=== PATIENT | male | born 1970 | race Caucasian/White ===

== ENCOUNTER 2017-05-09 09:11 | Emergency (ER) | payer OTHER ==
[~2017-05-09] VITALS: Ht 180.3 cm; Wt 124.5 kg
[2017-05-09 09:16] VITALS: BP 134/91; PULSE 111; RESP 15; O2SAT 98
--- NOTE | 2017-05-09 09:39 | ED.REPORT ---
HPI-General Illness Date of Service May 09, 2017 ED Provider: Favio Aj DO 47 y/o male with a hx of new onset DM and staph infection presents to the ED from urgent care complaining of a tender abscess on the back of his neck for the last 10 days. The pt has been on Bactrim for the past 8 days, which has not been effective. He states it has decreased in size but seems to be moving to the right. The pt is unsure if it has been draining but states he has been scratching it and noticed scarring. Nursing Notes Stated Complaint: LEG ABSCESS Chief Complaint: Skin Rash/Abscess Nursing Notes Reviewed: Yes Allergies: Coded Allergies: No Known Allergies (Unverified , 05/09/17) Scheduled Metformin (Metformin) 500 Mg Tablet 500 MG PO BID Sulfamethoxazole/Trimeth 800-160 mg (Bactrim DS 800-160 mg) 1 Each Tablet 1 TABLET PO BID General Time Seen by MD: 09:37 Chief Complaint Other (abscess on neck) Hx Obtained From: Patient Arrived By: Walk-in Sudden in Onset?: No Onset Occurred: More than a week ago... (10 days) Symptom Duration: Since onset Location: : Neck Quality: Painful Radiation: : Does not radiate Severity: Current: Mild Severity: Maximum: Mild Recent Healthcare: Recent doctor visit Similar Sx Previous: Yes Past Medical History Past Medical History hx of staph infection new onset DM Past Surgical History none reported Smoking History Unknown if Ever Smoker Social History Alcohol Use: "Social" Drug Use: Denies drug use Ambulatory Status Independent Review of Systems Reports: painful abscess on the neck Complete sys rev & neg: except as marked. Physical Exam Vital Signs Vital Signs Date Time Temp Pulse Resp B/P Pulse Ox O2 Delivery O2 Flow Rate FiO2 05/09/17 12:27 106 18 148/98 97 Room Air 05/09/17 09:16 36.8 111 15 134/91 98 Initial VS: Reviewed Head / Eyes: Atraumatic, Normocephalic ENT: Mucous membranes moist, Conjunctiva normal, No scleral icterus Neck: Supple, Full range of motion Respiratory: Breath sounds normal, Clear to auscultation, No respiratory distress Cardiovascular: Regular rate & rhythm, Heart sounds normal, Intact distal pulses Extremities: Vascular intact, Neuro intact, No swelling, No tenderness Neurologic: Alert, Oriented, Nonfocal General/Constitutional: Awake, Alert, Cooperative Skin: Atraumatic, Warm, Dry, Intact [id number] abscess on the dorsal neck with redness, warmth and induration. Interpretation & Diagnostics Lab Results Interpretation Result Diagram: 05/09/17 1000 05/09/17 1000 Test 05/09/17 10:00 White Blood Count 12.4th/mm3 (3.8-10.1) Red Blood Count 5.33mil/mm3 (4.40-5.80) Hemoglobin 15.8g/dL (13.8-17.2) Hematocrit 45.1% (41.0-50.0) Mean Corpuscular Volume 84.6fL (81-100) Mean Corpuscular Hemoglobin 29.6pg (27.0-35.0) Mean Corpuscular Hemoglobin Concent 35.0% (32.0-37.0) Red Cell Distribution Width 11.6% (12.3-15.4) Platelet Count 331bil/L (150-400) Neutrophils (%) (Auto) 76.1% (40-74) Lymphocytes (%) (Auto) 12.2% (14-46) Monocytes (%) (Auto) 9.3% (4-12) Eosinophils (%) (Auto) 1.4% (0-5) Basophils (%) (Auto) 0.3% (0-3) Sodium Level 134mEq/L (134-144) Potassium Level 4.1mEq/L (3.5-5.2) Chloride Level 94mEq/L (97-108) Carbon Dioxide Level 23mmol/L (18-29) Blood Urea Nitrogen 14mg/dL (6-24) Creatinine 0.79mg/dL (0.76-1.27) Estimat Glomerular Filtration Rate 111mL/min (>59) Glucose Level 321mg/dL (60-99) Lactic Acid Level 1.6mmol/L (0.4-2.0) Calcium Level 9.5mg/dL (8.5-10.1) Procedures Incision & Drainage Abscess I & D Abscess: 2cm incision Procedure Performed by: [facility] Location of Abscess: Neck posteriorly Skin Preparation Agent: Betadine Local Anesthesia: Lidocaine 1% Incised Abscess with Scalpel: #11 Pus Drained: Large Irrigation: Yes, Copious Post-Procedure / Complications: Packing placed, Culture obtained, Gram stain ordered, Dressing applied, No complications, Condition improved, Tolerated procedure well, Patient stable Re-Eval/Medical Decision Med Decision/Clinical Course Large posterior occipital carbuncle, drained at the bedside, also new onset diabetes. Patient is resistant to starting metformin. However, metformin, a glucometer, test strips, and lancets are all prescribed. Return in follow-up precautions given. Time of Eval: 10:14 Re-Evaluation/Progress Note: Rechecked pt. Bedside ultrasound done. Discussed the plan to drain the abscess. The pt understands and agrees with the plan. All questions answered. Time of Eval: 11:30 Patient Status: Condition improved Re-Evaluation/Progress Note: MARK Velasco, drained the abscess. Time of Eval: 12:03 Patient Status: Condition improved Re-Evaluation/Progress Note: Rechecked pt. Discussed lab results, diagnosis and plan to discharge. Pt understands and agrees with the plan. F/U instructions and RTER warning given. All questions addressed. Counseled Regarding: Diagnosis, Lab results, Need for follow-up, When/why to return to ED Discharge & Departure Primary Impression: Carbuncle and furuncle of neck Additional Impression: Diabetes mellitus, new onset Disposition: Home Discharge Condition All VS Reviewed: Yes Condition: Stable Patient Instructions: Abscess (ED), Type 1 Diabetes in Adults (ED) Additional Instructions: In the ER you had the area of infection on your neck opened and drained. Wound packing was placed. Conitinue your antibiotic. Follow-up in 48 hours for packing removal and reevaluation. Incidentally you also have an elevated blood sugar and probably have new onset diabetes. You should begin metformin for this and check your blood sugars in the morning prior to eating and keep a written log of your blood sugars. You should establish with a primary care doctor to have a full physical. Return to the ER immediately if you develop any worsening or concerning symptoms. Referrals: [facility] Scribe Attestation Portions of this note were transcribed by Jose L Landin. I,, personally performed the history, physical exam and medical decision-making;I reviewed and confirmed the accuracy of the information in the transcribed note. Signed by Francisca Tang. 05/09/17 12:30 Favio Aj DO May 09, 2017 09:39 Jose L Landin May 09, 2017 09:48
[2017-05-09 10:13] LABS: BASOPHILS % (AUTO) 0.3 % (0-3); EOSINOPHILS % (AUTO) 1.4 % (0-5); MONOCYTES % (AUTO) 9.3 % (4-12); Mean Corpuscular Hemoglobin 29.6 pg (27.0-35.0); Mean Corpuscular Volume 84.6 fL (81-100); NEUTROPHILS % (AUTO) 76.1 % (40-74); Platelet Count 331 bil/L (150-400)
[2017-05-09] MEDS ORDERED: Lidocaine-Epi-Tetracaine Solution 3 mL Syringe TOPICAL ONE (10:20)
[2017-05-09] MEDS ORDERED: METF500T4 PO (12:15)
[2017-05-09] MEDS ORDERED: SULF1TAB35 PO (12:15)
[2017-05-09 12:27] VITALS: BP 148/98; PULSE 106; RESP 18; O2SAT 97
== END 2017-05-09 12:29 | disposition home or self-care (01) ==
LOC: SED 09:11
DX: L02.13 Carbuncle of neck (principal); E11.9 Type 2 diabetes mellitus without complications; Z79.84 Long term (current) use of oral hypoglycemic drugs

== ENCOUNTER 2017-05-11 10:41 | Emergency (ER) | payer OTHER ==
[~2017-05-11] VITALS: Ht 180.3 cm; Wt 124.5 kg
[~2017-05-11 10:41] MED LIST: METF500T4 PO; SULF1TAB35 PO
[2017-05-11 11:06] VITALS: BP 125/89; PULSE 109; RESP 15; O2SAT 98
--- NOTE | 2017-05-11 11:26 | ED.REPORT ---
HPI-Rash / Abscess Date of Service May 11, 2017 ED Provider: History of Present Illness: 47-year-old male here for abscess of his posterior neck. He was seen 2 days ago and had it I &D'd here in the emergency room. He was seen 2-3 times in the last few weeks at the urgent care and started on oral abx but with out sufficient improvement. Started on sulfa medication at urgent cares and continued in ER. He went to the clinic yesterday and they redressed the wound but did not take out the packing. He states he is improving and the pain is gone. It is still draining purulent drainage. He was also found to have new onset diabetes at his ER visit. He has not started his metformin due to fear of side effects. He just got his glucometer today but has not checked his blood sugars. His blood sugar here in the ER was in the 240s. He has not made a PCP appointment but still has his referral list. Nursing Notes Stated Complaint: REDRESSING ON NECK Chief Complaint: Wound Recheck/Suture Removal Nursing Notes Reviewed: Yes Allergies: Coded Allergies: No Known Allergies (Unverified , 05/09/17) Scheduled Metformin (Metformin) 500 Mg Tablet 500 MG PO BID Sulfamethoxazole/Trimeth 800-160 mg (Bactrim DS 800-160 mg) 1 Each Tablet 1 TABLET PO BID General Time Seen by MD: 11:16 Chief Complaint Abscess Hx Obtained From: Patient Arrived By: Walk-in Onset Occurred: 2 days ago Symptom Duration: 3 days Location: : Neck Severity: Current: No pain currently Severity: Maximum: Moderate Associated with: Denies Fever Pertinent Negative: Pt denies other symptoms Recent Healthcare: Recent doctor visit Similar Sx Previous: No Past Medical History Past Medical History Notes: diabetes Past Medical History hx of staph infection new onset DM Past Surgical History none reported Smoking History Unknown if Ever Smoker Social History Alcohol Use: "Social" Drug Use: Denies drug use Ambulatory Status Independent Review of Systems Basic Review of Systems Neurologic: NL mental status Psychiatric: Normal thought content Constitutional: Denies: Chills, Fatigue, Fever Ears / Nose / Throat: Denies: Throat pain Cardiovascular: Denies: Chest pain GI: Denies: Abdominal pain, Nausea Musculoskeletal: Reports: Neck pain Skin: Reports Swelling Complete sys rev & neg: except as marked. Physical Exam Initial Vital Signs Vital Signs (First) Date Time Temp Pulse Resp B/P Pulse Ox O2 Delivery O2 Flow Rate FiO2 05/11/17 11:06 36.4 109 15 125/89 98 Room Air Initial VS: Reviewed, Vital signs normal Head / Eyes: Atraumatic, Normocephalic, PERRL ENT: Mucous membranes moist, Conjunctiva normal, No scleral icterus Neck: Supple, Non-tender, Full range of motion Respiratory: Breath sounds normal, Clear to auscultation, No respiratory distress Cardiovascular: Regular rate & rhythm, Heart sounds normal, Intact distal pulses Neurologic: Alert Psychiatric: Mood/affect normal Additional Physical Exam: Large area of erythema over his posterior neck with induration present. Gauze packing still present in wound. The area largely nontender. Drainage noted on dressing and packing. Procedures Incision & Drainage Abscess I & D Abscess: Approximately 8 cm of packing removed. Irrigated with normal saline. wound aggressively drained with manual pressure. Approximate 5 cm of half-inch iodoform packing placed nonstick dressing and ABD bandage applied. Procedure Performed by: [facility] Consent / Setup / Site Prep: Informed consent provided Skin Preparation Agent: Normal saline Pus Drained: Medium Irrigation: Copious Post-Procedure / Complications: Packing placed, Drain placed Re-Eval/Medical Decision Med Decision/Clinical Course culture results not back yet Discharge & Departure Shift Change Sign-Out Response to Therapy: Improved Impression: Primary Impression: Carbuncle and furuncle of neck Disposition: Home Discharge Condition All VS Reviewed: Yes Condition: Stable Patient Instructions: Abscess Follow-up (ED) Additional Instructions: Continue to take antibiotics. Follow-up in 2 days for packing removal and possible repacking. He made come back to the emergency room for follow-up at a walk-in clinic. Return sooner if her symptoms worsen, your pain increases or swelling increases. Change dressing at least once or twice a day depending on how much drainage occurs. Updated on your tetanus today. you should start your diabetes medications today try starting at a half a tab to minimize side effects. you should establish with a PCP to further manage your diabetes. . Starting on lifestyle changes is imperative as discussed. Referrals: N[facility]CP (PCP) EDSupervising Provider for APC: Tigre Mcduffie MD, Linnea K ARNP May 11, 2017 11:26
[2017-05-11] MEDS ORDERED: TdaP Vaccine 0.5 mL Inj IM ONE (12:10)
== END 2017-05-11 12:18 | disposition home or self-care (01) ==
LOC: SED 10:41
DX: L02.12 Furuncle of neck (principal); L02.13 Carbuncle of neck; E11.9 Type 2 diabetes mellitus without complications; Z86.19 Personal history of other infectious and parasitic diseases; Z79.84 Long term (current) use of oral hypoglycemic drugs